=== PATIENT | female | born 1945 | race Two or more races ===

== ENCOUNTER 2019-06-18 10:28 | Outpatient (CLI) | payer OTHER | END 2019-06-18 12:52 | disposition home or self-care (01) | LOC: SONOGRAMA 10:28 | DX: E04.2 Nontoxic multinodular goiter (principal) ==

== ENCOUNTER 2019-10-04 16:52 | Emergency (ER) | payer OTHER ==
[~2019-10-04] VITALS: Ht 160 cm; Wt 65.8 kg
[2019-10-04] MEDS ORDERED: ZETIA10 MG (17:00)
[2019-10-04] MEDS ORDERED: ZOCOR20 MG (17:00)
[2019-10-04] MEDS ORDERED: COZAAR25 MG (17:00)
== END 2019-10-05 10:31 | disposition home or self-care (01) ==
LOC: ER 16:52
DX: K57.32 Diverticulitis of large intestine without perforation or abscess without bleeding (principal); D72.828 Other elevated white blood cell count; N20.0 Calculus of kidney; K76.89 Other specified diseases of liver; R10.32 Left lower quadrant pain; I16.0 Hypertensive urgency; I10 Essential (primary) hypertension

== ENCOUNTER 2023-07-02 08:51 | Inpatient (IN) | payer OTHER ==
[~2023-07-02] VITALS: Ht 160 cm; Wt 61.7 kg
[~2023-07-02 08:51] MED LIST: COZAAR25 MG; ZETIA10 MG; ZOCOR20 MG
--- NOTE | 2023-07-02 09:07 | NUR ---
PTE LLEGA EN AMBULANCIA DE TRANSFER DEL [facility] POR FLANK PAIN Y DOLOR AL ORINAR SE LE ERIN S/V LA CUAL SE DOCUENTA. PTE DEL CRYSTAL LA CUAL SE MANTIENE NOTIFICADO DE LA PTE DESDE EL HOSPITAL QUE LO TRANSFIEREN .SE ACOMODA EN ABDULLAHI.
--- NOTE | 2023-07-02 09:38 | NUR ---
EVALUA A PTE Y MARJORIE DA ORDEN DE [place] [facility]. SE ORIENTA A PTE SOBRE [facility] Y ESTA VERBALIZA ENTENDER Y ACEPTAR. SE COLECTAN MUESTRAS DE LAB, SE SE COLOCA FLUIDO INTRAVENOSOS BAJO MEDIDAS ASEPTICAS. SE INSERTA MORRIS #[id number] BAJANDO A GRAVEDAD ELIMANDO 25ML APROX DE ORINA COLOR AMARILLO. SE OBSERVA VENOPUNCION EN CHRISTA EARL, DEL [facility]. PTE MANEJADA POR DONTE HINES Y DONTE PETERS.
== END 2023-07-03 18:55 | disposition home or self-care (01) | DRG 660 ==
LOC: ER 08:51 → SURH 12:50
PROVIDERS: General Practice; ADMIT Urology; ATTEND Urology
PROC: BT43ZZZ Ultrasonography of Bilateral Kidneys (ICD-10-PCS; 2023-07-02)
PROC: 0T768DZ Dilation of Right Ureter with Intraluminal Device, Via Natural or Artificial Opening Endoscopic (ICD-10-PCS; principal; 2023-07-02 18:00)
DX: N13.39 Other hydronephrosis (principal); N20.1 Calculus of ureter; Z20.822 Contact with and (suspected) exposure to COVID-19

== ENCOUNTER 2023-08-27 07:43 | Emergency (ER) | payer OTHER ==
[~2023-08-27] VITALS: Ht 160 cm; Wt 59.0 kg
[2023-08-27 09:39] LABS: URINE APPEARANCE Turbid; URINE BILIRRUBIN Moderate (NEGATIVE); URINE BLOOD Large; URINE COLOR Orange; URINE GLUCOSE Negative (NEGATIVE); URINE LEUKOCYTE Large; URINE NITRATE Positive
[2023-08-27 09:44] LABS: HEMATOCRIT 38.5 % (36.0-45.00); HEMOGLOBIN 12.8 g/dL (12.0-15.00); MEAN CELL VOLUME 87.8 fL (80.00-100.00); MEAN CORPUSCULAR HEMOGLOBIN 29.2 pg (27.00-32.0); MEAN CORPUSCULAR HGB CONC 33.3 g/dl (32.0-36.0); PLATELET COUNT 334 K/uL (150-450); RED BLOOD COUNT 4.38 M/uL (4.00-6.00)
[2023-08-27 09:57] LABS: CREATININE SERUM 0.77 mg/dL (0.55-1.02); GFR 72.13; POTASSIUM 3.76 mEq/L (3.5-5.1)
[2023-08-27 10:09] LABS: URINE PROTEIN 300 (NEGATIVE)
[2023-08-27 10:12] LABS: URINE BACTERIA MODERATE; URINE MUCUS MODERATE; URINE RBC LOADED /HPF
[2023-08-27 10:14] LABS: URINE EPITHELIAL CELLS 0-4 /HPF
== END 2023-08-27 10:47 | disposition home or self-care (01) ==
LOC: ER 07:43
PROVIDERS: General Practice
DX: N39.0 Urinary tract infection, site not specified (principal); R30.0 Dysuria; Z87.442 Personal history of urinary calculi